=== PATIENT | male | born 2000 | race Caucasian/White ===

== ENCOUNTER 2023-08-28 13:07 | Emergency (ER) | payer MEDICAID, OTHER ==
[~2023-08-28] VITALS: Ht 182.8 cm; Wt 73.6 kg
[2023-08-28 13:39] LABS: BASOPHILS # (AUTO) 0.1 10^3/uL (0.0-0.1); BASOPHILS % (AUTO) 1 % (0-10); EOSINOPHILS # (AUTO) 0.1 10^3/uL (0.0-0.3); EOSINOPHILS % (AUTO) 1 % (0-10); HEMATOCRIT 49 % (40-54); HEMOGLOBIN 16.5 g/dL (13.3-17.7); LYMPHOCYTES # (AUTO) 3.1 10^3/uL (1.0-4.0); LYMPHOCYTES % (AUTO) 40 % (12-44); MEAN CORPUSCULAR HEMOGLOBIN 30 pg (25-34); MEAN CORPUSCULAR HGB CONC 34 g/dL (32-36); MEAN CORPUSCULAR VOLUME 89 fL (80-99); MEAN PLATELET VOLUME 9.6 fL (9.0-12.2); MONOCYTES # (AUTO) 0.5 10^3/uL (0.0-1.0); MONOCYTES % (AUTO) 6 % (0-12); NEUTROPHILS # (AUTO) 3.9 10^3/uL (1.8-7.8); NEUTROPHILS % (AUTO) 51 % (42-75); PLATELET COUNT 253 10^3/uL (130-400); WHITE BLOOD COUNT 7.7 10^3/uL (4.3-11.0)
[2023-08-28] MEDS ORDERED: NS IV 1000 ML 1,000 ML IV SCH (13:45)
[2023-08-28 13:56] LABS: CHLORIDE 107 MMOL/L (98-107); POTASSIUM 3.9 MMOL/L (3.6-5.0); SODIUM 138 MMOL/L (135-145)
[2023-08-28 13:57] LABS: CARBON DIOXIDE 23 MMOL/L (21-32)
[2023-08-28 14:00] LABS: ALANINE AMINOTRANSFERASE 25 U/L (0-55); ALKALINE PHOSPHATASE 61 U/L (40-136); BILIRUBIN,TOTAL 0.6 MG/DL (0.1-1.0); BUN/CREATININE RATIO 16; CALCIUM 9.3 MG/DL (8.5-10.1); CREATININE SERUM 0.82 MG/DL (0.60-1.30); GFR ESTIMATED 126; GLUCOSE 88 MG/DL (70-105); TOTAL PROTEIN 6.8 GM/DL (6.4-8.2)
[2023-08-28 14:01] LABS: ACETAMINOPHEN 14 UG/ML (10-30); SALICYLATE < 0.3 MG/DL (5.0-20.0)
[2023-08-28 14:32] LABS: BILIRUBIN,URINE NEGATIVE (NEGATIVE); CLARITY,URINE CLEAR; COLOR,URINE YELLOW; GLUCOSE, URINE (UA) NEGATIVE (NEGATIVE); KETONES,URINE NEGATIVE (NEGATIVE); LEUKOCYTE ESTERASE ,URINE NEGATIVE (NEGATIVE); NITRITE,URINE NEGATIVE (NEGATIVE); PROTEIN,URINE NEGATIVE (NEGATIVE)
[2023-08-28 14:37] LABS: BACTERIA,URINE NEGATIVE /HPF; SQUAMOUS EPITHELIAL CELL,UR RARE /HPF
[2023-08-28 14:55] LABS: AMPHETAMINE SCREEN, URINE NEGATIVE (NEGATIVE); BARBITURATE SCREEN URINE NEGATIVE (NEGATIVE); CANNABINOID SCREEN, URINE POSITIVE (NEGATIVE); COCAINE SCREEN URINE NEGATIVE (NEGATIVE); METHADONE STAT NEGATIVE (NEGATIVE); OPIATE SCREEN URINE NEGATIVE (NEGATIVE); OXYCODONE STAT POSITIVE (NEGATIVE); TRICYCLIC ANTIDEPRESSANTS SCRE NEGATIVE (NEGATIVE)
--- NOTE | 2023-08-28 15:13 | ED General ---
General Chief Complaint: Altered Mental Status Stated Complaint: AMS Nursing Triage Note: GIRLFRIEND STATES PATIENT HAS NOT BEEN ACTING HIMSELF SINCE LAST NIGHT. STATES HE HAD 4 OR 5 BEERS LAST NIGHT BUT WAS STUMBLING AROUND TODAY, HAS IMPAIRED MEMORY, SLURRED SPEECH, INCREASED TIREDNESS AND INCREASED LEFT EYE SENSITIVITY. Source of Information: Patient, Other (Girlfriend) History of Present Illness Date Seen by Provider: Aug 28, 2023 Time Seen by Provider: 13:19 Initial Comments 22-year-old male patient with history of hepatitis and alcohol abuse brought in POV with his girlfriend because of not acting like his usual since last night after drinking 3 to 4 cans of beers. Patient girlfriend stated he is a speech was different and he was confused this morning. Patient stated he usually a drinks 2 or 3 cans of beer twice a week and does not get drunk with 4 cans of beers and denies using drug or fall or head injury. Patient denies any pain at arrival to ER but later on he stated he had pain of his liver in his left-side with radiation to his back. Patient also later on complaining of headache and rated his pain 9/10. Patient is alert and oriented but talking like alcohol intoxicated. Patient stated he was a drug addict but did not use any drugs for 1 year. Patient denies suicidal and homicidal ideation and hallucination. Location Injury Occurred: Last night Allergies and Home Medications Allergies Coded Allergies: No Known Drug Allergies (Unverified , 08/28/23) Patient Home Medication List Home Medication List Reviewed: Yes Review of Systems Review of Systems Constitutional: no symptoms reported EENTM: no symptoms reported Respiratory: no symptoms reported Cardiovascular: no symptoms reported Gastrointestinal: see HPI Genitourinary: no symptoms reported Musculoskeletal: see HPI Skin: no symptoms reported Psychiatric/Neurological: See HPI Hematologic/Lymphatic: No Symptoms Reported Immunological/Allergic: no symptoms reported All Other Systems Reviewed Negative Unless Noted: Yes Past Sfxjgga-Actgyg-Fewyac Hx Patient Social History Tobacco Use?: No Use of E-Cig and/or Vaping dev: No Substance use?: No Alcohol Use?: No Pt feels they are or have been: No Immunizations Up To Date Influenza Vaccine Up-to-Date: No; Not Current First/Initial COVID19 Vaccinat: 2 SHOTS Past Medical History Surgery/Hospitalization HX: HEP C Physical Exam Vital Signs Vital Signs - First Documented 08/28/23 13:10 Temp 35.7 Pulse 72 Resp 12 B/P (MAP) 124/94 (104) Pulse Ox 98 O2 Delivery Room Air Capillary Refill : Less Than 3 Seconds Height, Weight, BMI Height: '" Weight: lbs. oz. kg; 22.00 BMI Method: General Appearance: No Apparent Distress (Anxious), WD/WN Eyes: Bilateral Eye Normal Inspection, Bilateral Eye PERRL, Bilateral Eye EOMI HEENT: PERRL/EOMI, TMs Normal, Normal ENT Inspection, Pharynx Normal Neck: Full Range of Motion, Normal Inspection, Non Tender, Supple, Carotid Bruit Respiratory: Chest Non Tender, Lungs Clear, Normal Breath Sounds, No Accessory Muscle Use, No Respiratory Distress Cardiovascular: Regular Rate, Rhythm, No Edema, No Gallop, No JVD, No Murmur, Normal Peripheral Pulses Gastrointestinal: Normal Bowel Sounds, No Organomegaly, No Pulsatile Mass, Non Tender, Soft Back: Normal Inspection, No CVA Tenderness, No Vertebral Tenderness Extremity: Normal Capillary Refill, Normal Inspection, Normal Range of Motion, Non Tender, No Calf Tenderness, No Pedal Edema Neurologic/Psychiatric: Alert, Oriented x3, No Motor/Sensory Deficits, Normal Mood/Affect Skin: Normal Color, Warm/Dry Lymphatic: No Adenopathy Progress/Results/Core Measures Suspected Sepsis SIRS Temperature: Pulse: 72 Respiratory Rate: 12 Laboratory Tests 08/28/23 13:25: White Blood Count 7.7 Blood Pressure 124 /94 Mean: 104 Laboratory Tests 08/28/23 13:25: Creatinine 0.82, Platelet Count 253, Total Bilirubin 0.6 Results/Orders Lab Results Laboratory Tests Test 08/28/23 13:25 08/28/23 14:20 Range/Units White Blood Count 7.7 4.3-11.0 10^3/uL Red Blood Count 5.47 4.30-5.52 10^6/uL Hemoglobin 16.5 13.3-17.7 g/dL Hematocrit 49 40-54 % Mean Corpuscular Volume 89 80-99 fL Mean Corpuscular Hemoglobin 30 25-34 pg Mean Corpuscular Hemoglobin Concent 34 32-36 g/dL Red Cell Distribution Width 12.9 10.0-14.5 % Platelet Count 253 130-400 10^3/uL Mean Platelet Volume 9.6 9.0-12.2 fL Immature Granulocyte % (Auto) 0 % Neutrophils (%) (Auto) 51 42-75 % Lymphocytes (%) (Auto) 40 12-44 % Monocytes (%) (Auto) 6 0-12 % Eosinophils (%) (Auto) 1 0-10 % Basophils (%) (Auto) 1 0-10 % Neutrophils # (Auto) 3.9 1.8-7.8 10^3/uL Lymphocytes # (Auto) 3.1 1.0-4.0 10^3/uL Monocytes # (Auto) 0.5 0.0-1.0 10^3/uL Eosinophils # (Auto) 0.1 0.0-0.3 10^3/uL Basophils # (Auto) 0.1 0.0-0.1 10^3/uL Immature Granulocyte # (Auto) 0.0 0.0-0.1 10^3/uL Sodium Level 138 135-145 MMOL/L Potassium Level 3.9 3.6-5.0 MMOL/L Chloride Level 107 98-107 MMOL/L Carbon Dioxide Level 23 21-32 MMOL/L Anion Gap 8 5-14 MMOL/L Blood Urea Nitrogen 13 7-18 MG/DL Creatinine 0.82 0.60-1.30 MG/DL Estimat Glomerular Filtration Rate 126 BUN/Creatinine Ratio 16 Glucose Level 88 70-105 MG/DL Calcium Level 9.3 8.5-10.1 MG/DL Corrected Calcium 9.3 8.5-10.1 MG/DL Total Bilirubin 0.6 0.1-1.0 MG/DL Aspartate Amino Transf (AST/SGOT) 19 5-34 U/L Alanine Aminotransferase (ALT/SGPT) 25 0-55 U/L Alkaline Phosphatase 61 40-136 U/L Total Protein 6.8 6.4-8.2 GM/DL Albumin 4.0 3.2-4.5 GM/DL Salicylates Level < 0.3 L 5.0-20.0 MG/DL Acetaminophen Level 14 10-30 UG/ML Serum Alcohol < 10 <10 MG/DL Urine Color YELLOW Urine Clarity CLEAR Urine pH 6.0 5-9 Urine Specific [place] 1.025 H 1.016-1.022 Urine Protein NEGATIVE NEGATIVE Urine Glucose (UA) NEGATIVE NEGATIVE Urine Ketones NEGATIVE NEGATIVE Urine Nitrite NEGATIVE NEGATIVE Urine Bilirubin NEGATIVE NEGATIVE Urine Urobilinogen 0.2 < = 1.0 MG/DL Urine Leukocyte Esterase NEGATIVE NEGATIVE Urine RBC (Auto) NEGATIVE NEGATIVE Urine RBC NONE /HPF Urine WBC NONE /HPF Urine Squamous Epithelial Cells RARE /HPF Urine Crystals NONE /LPF Urine Bacteria NEGATIVE /HPF Urine Casts NONE /LPF Urine Mucus NEGATIVE /LPF Urine Culture Indicated NO Urine Opiates Screen NEGATIVE NEGATIVE Urine Oxycodone Screen POSITIVE H NEGATIVE Urine Methadone Screen NEGATIVE NEGATIVE Urine Barbiturates Screen NEGATIVE NEGATIVE Ur Tricyclic Antidepressants Screen NEGATIVE NEGATIVE Urine Phencyclidine Screen NEGATIVE NEGATIVE Urine Amphetamines Screen NEGATIVE NEGATIVE Urine Methamphetamines Screen NEGATIVE NEGATIVE Urine Benzodiazepines Screen POSITIVE H NEGATIVE Urine Cocaine Screen NEGATIVE NEGATIVE Urine Cannabinoids Screen POSITIVE H NEGATIVE My Orders Orders - BUSHRA العراقي MD Ua Culture If Indicated (08/28/23 13:30) Cbc And Automated Diff (08/28/23 13:30) Comprehensive Metabolic Panel (08/28/23 13:30) Alcohol (08/28/23 13:30) Drug Screen Stat (Urine) (08/28/23 13:30) Acetaminophen (08/28/23 13:30) Salicylate (08/28/23 13:30) Ed Iv/Invasive Line Start (08/28/23 13:30) Monitor-Rhythm Ecg Trace Only (08/28/23 13:30) Ct Head Wo (08/28/23 13:30) Ns Iv 1000 Ml (Ns Iv 1000 Ml) (08/28/23 13:45) Vital Signs/I&O 08/28/23 13:10 Temp 35.7 Pulse 72 Resp 12 B/P (MAP) 124/94 (104) Pulse Ox 98 O2 Delivery Room Air Capillary Refill : Less Than 3 Seconds Blood Pressure Mean: 104 Progress Note : Progress Note Differential diagnosis, alcohol abuse, substance abuse, electrolyte imbalance 22-year-old male patient with history of substance abuse, stated quit 1 year ago, and alcohol abuse presented POV with concern for not acting like his usual. Patient was alert and oriented and had a stable vital signs and physical exam. Patient treated with 1 L of normal saline and felt better. CBC, CMP, UA, UDS, alcohol level, salicylate and aspirin level, CT head was ordered and reviewed by me and did not show acute finding except for positive UDS for benzos, oxycodone and marijuana. Patient did not have any prescription of this medication and stated difference giving him the drugs. Patient had alcohol level of less than 10. Patient advised to quit drinking alcohol and using drugs and follow-up with primary care physician. Diagnostic Imaging Diagonstic Imaging: CT Plain Films/CT/US/NM/MRI: head Comments CT head interpreted by radiologist and reviewed by me and showed: [facility], [place] NAME: TROY RUIZ MED REC#: [id number] PT STATUS: REG ER : 2000 PHYSICIAN: BUSHRA العراقي MD ADMIT DATE: 08/28/23/ER FS Draft Date of Exam:08/28/23 CT HEAD WO INDICATION: Altered mental status TECHNIQUE: Multiple contiguous axial images were obtained through the brain without the use of intravenous contrast. Auto Exposure Controls were utilized during the CT exam to meet ALARA standards for radiation dose reduction. There is no prior study for comparison. There were no extra-axial fluid collections. No intracranial hemorrhage. No intracranial mass or mass effect. No midline shift. The ventricles are normal in size and position. There were no focal parenchymal abnormalities in the brain. Calvarial windows are unremarkable. IMPRESSION: Negative noncontrast brain CT. Dictated on workstation # [id number] Dict: 08/28/23 1514 Trans: 08/28/23 1524 CV [id number] Interpreted by: CHAZ CLAIRE MD Electronically signed by: Departure Impression Primary Impression: Polysubstance abuse Disposition: 01 HOME, SELF-CARE Condition: Stable Departure-Patient Inst. Decision time for Depature: 15:29 Referrals: NO,LOCAL PHYSICIAN (PCP/Family) Primary Care Physician Patient Instructions: ALCOHOL AND SUBSTANCE ABUSE, Alcohol Use Disorder (DC) Add. Discharge Instructions: Not use drugs and alcohol Drink plenty of liquids Follow-up with your primary care physician in 3 to 5 days Return to ER as needed All discharge instructions reviewed with patient and/or family. Voiced understanding. BUSHRA العراقي MD Aug 28, 2023 15:13
--- NOTE | 2023-08-28 15:25 | Diagnostic Imaging Report ---
INDICATION: Altered mental status TECHNIQUE: Multiple contiguous axial images were obtained through the brain without the use of intravenous contrast. Auto Exposure Controls were utilized during the CT exam to meet ALARA standards for radiation dose reduction. There is no prior study for comparison. There were no extra-axial fluid collections. No intracranial hemorrhage. No intracranial mass or mass effect. No midline shift. The ventricles are normal in size and position. There were no focal parenchymal abnormalities in the brain. Calvarial windows are unremarkable. IMPRESSION: Negative noncontrast brain CT. Dictated by: Dictated on workstation # [id number]
[2023-08-28 15:38] VITALS: BP 119/76
== END 2023-08-28 15:38 | disposition home or self-care (01) ==
LOC: EDUNIT# 13:07 → ER FS 13:09
DX: F19.10 Other psychoactive substance abuse, uncomplicated (principal); F10.10 Alcohol abuse, uncomplicated
CPT/HCPCS: 36415; 70450; 80053; 80306; 80320; 80329; 81000; 85025; 93041; 96360